=== PATIENT | female | born 1970 | race Caucasian/White ===

== ENCOUNTER 2017-03-28 11:18 | Emergency (ER) | payer MEDICAID | END 2017-03-28 12:09 | disposition home or self-care (01) | LOC: D.ER 11:18 | DX: M77.9 Enthesopathy, unspecified (principal); E11.9 Type 2 diabetes mellitus without complications; I10 Essential (primary) hypertension ==

== ENCOUNTER 2017-08-20 10:02 | Inpatient (IN) | payer MEDICAID ==
[~2017-08-20] VITALS: Ht 160 cm; Wt 67.3 kg
--- NOTE | ~2017-08-20 | OP ---
PATIENT NAME: REHAN ESTRELLA MEDICAL RECORD: [id number] :70 LOCATION:[id number] ADMISSION DATE:08/20/17 SURGEON: SRINI DUNN MD DATE OF OPERATION: 08/23/2017 PREOPERATIVE DIAGNOSES: 1. Acute cholecystitis. 2. Diabetes mellitus. 3. Gastroesophageal reflux disease. POSTOPERATIVE DIAGNOSES: 1. Acute cholecystitis. 2. Diabetes mellitus. 3. Gastroesophageal reflux disease. PROCEDURE: Laparoscopic cholecystectomy. SURGEON: Srini Dunn MD REPORT OF PROCEDURE: The patient's abdomen was prepped and draped in sterile fashion. A cutdown was made on the superior aspect of the umbilicus, 0 Vicryls were placed in the fascia bilaterally and the fascia was incised with a 15-blade. I then bluntly entered the peritoneal cavity and placed a 12-mm Jarrod port. Under direct visualization, a 5-mm trocar was placed in the epigastrium and two more 5-mm trocars were placed in the right subcostal region. The gallbladder was grasped and elevated. There were some acute and chronic changes visible. These chronic inflammatory adhesions were taken down using blunt dissection. The cystic artery and cystic duct were dissected free and these were clipped proximally and distally and ligated in standard fashion. The gallbladder was then peeled off the liver bed using electrocautery. Any bleeding from the liver bed was then treated with electrocautery. We irrigated out the right upper quadrant and assured there was no sign of any bleeding or bile leakage. At this point, the ports and insufflation were then removed and the gallbladder was taken out through the umbilicus. The umbilical fascia was closed with interrupted 0 Vicryls times 3. The wounds were irrigated out with normal saline and infused with 10 mL of 0.25% Marcaine with epinephrine. The skin incisions were all closed with subcutaneous 5-0 Monocryl and dressed appropriately. COMPLICATIONS: None. CONDITION: Stable. ANESTHESIA: General endotracheal and local. BLOOD LOSS: 30 mL. TRANSINT:[id number] Voice Confirmation ID: [id number] DOCUMENT ID: [id number] OPERATIVE REPORT [id number] REHAN ESTRELLA SRINI DUNN MD at 0933 CC: [id number] DICTATION DATE: 08/23/17 1340 DIE STAMPING PRESS OPERATOR: 08/23/17 1431 ADM IN [facility] [address] [id number]
[2017-08-20 10:53] LABS: BASOPHILS 0.2 % (0-2); EOSINOPHILS 0.3 % (0-7); HEMATOCRIT 42.4 % (36.0-48.0); HEMOGLOBIN 14.7 g/dL (12-16); IMMATURE GRANULOCYTES 0.3 % (0-5); MCH 33.6 pg (26.0-34.0); MCHC 34.7 g/dL (31.0-37.0); MCV 96.8 fL (80.0-100.0); MEAN PLATELET VOLUME 9.8 fL (7.4-10.4); MONOCYTES 4.4 % (2-11); NEUTROPHILS 76.8 % (40-80); PLATELET COUNT 266 10x3/uL (130-400); RBC 4.38 10x6/uL (4.00-5.40); RDW 12.1 % (11.5-14.5)
[2017-08-20 11:06] LABS: ALBUMIN 4.1 g/dL (3.4-5.0); ALKALINE PHOSPHATASE 66 U/L (46-116); ALT (SGPT) 87 U/L (10-68); AMYLASE - SERUM 49 U/L (25-115); BILIRUBIN - TOTAL 0.39 mg/dL (0.2-1.3); CALC OSMOLALITY 284 mosm/kg (275-300); CALCIUM 9.3 mg/dL (8.5-10.1); CARBON DIOXIDE 28.3 mmol/L (21.0-32.0); CHLORIDE - SERUM 103 mmol/L (98-107); CREATINE KINASE 64 UL (21-215); CREATININE - SERUM 0.8 mg/dL (0.6-1.3); GLUCOSE 211 mg/dL (74-106); LIPASE 590 U/L (73-393); MAGNESIUM - SERUM 1.9 mg/dL (1.8-2.4); POTASSIUM - SERUM 3.8 mmol/L (3.5-5.1); PROTEIN - SERUM 7.6 g/dL (6.4-8.2); SODIUM 140 mmol/L (136-145); UREA NITROGEN 12 mg/dL (7-18); eGFR NON AFRICAN AMERICAN 81 mL/min (90-120)
[2017-08-20 16:29] LABS: APPEARANCE HAZY (CLEAR); BILIRUBIN NEGATIVE (NEGATIVE); COLOR YELLOW (YELLOW); GLUCOSE 1000 mg/dL (NEGATIVE); KETONE MODERATE mg/dL (NEGATIVE); NITRITE POSITIVE (NEGATIVE); PROTEIN NEGATIVE (NEGATIVE); SPECIFIC GRAVITY 1.015 (1.005-1.020); UROBILINOGEN NORMAL (NORMAL)
[2017-08-20 16:30] LABS: BACTERIA MANY /hpf (NONE SEEN); EPITHELIAL CELLS 0-5 /hpf (0-5); RED CELLS - URINE OCC /hpf (0-5); WHITE CELLS - URINE OCC /hpf (0-5)
[2017-08-20 17:25] VITALS: BP 126/70; BMI 26.2
[2017-08-20 20:00] VITALS: BP 144/73
[2017-08-21] VITALS (7 sets, daily range): BP systolic 104–133; BP diastolic 54–83; Ht 160 cm; Wt 67.3 kg
[2017-08-22 04:00] VITALS: BP 123/79
[2017-08-22] MEDS ORDERED: KLONOPIN1 MG PO (06:27)
[2017-08-22] MEDS ORDERED: EFFEXOR XR150 MG PO (06:28)
[2017-08-22] MEDS ORDERED: MINIPRESS1 MG PO (06:28)
[2017-08-22] MEDS ORDERED: LISINOPRIL2.5 MG PO (06:28)
[2017-08-22] MEDS ORDERED: METFORMIN HCL500 M1 PO (06:29)
[2017-08-22] MEDS ORDERED: BUPROPION HCL100 M1 PO (06:29)
[2017-08-22] MEDS ORDERED: NOVOLOG INJ FLE (06:30)
[2017-08-22] MEDS ORDERED: ESTRACE1 MG PO (06:31)
[2017-08-22] MEDS ORDERED: PROAIR HFA8.5 GM INH (06:32)
[2017-08-22 08:42] VITALS: BP 132/72
[2017-08-22 12:27] VITALS: BP 128/77
[2017-08-22 16:30] VITALS: BP 121/82
[2017-08-22 20:00] VITALS: BP 133/83
[2017-08-23] VITALS: BP 126/65
[2017-08-23 04:00] VITALS: BP 119/81
[2017-08-23 05:59] LABS: BASOPHILS 0.5 % (0-2); EOSINOPHILS 1.7 % (0-7); HEMATOCRIT 35.9 % (36.0-48.0); HEMOGLOBIN 12.2 g/dL (12-16); LYMPHOCYTES 52.6 % (15-50); MCH 33.3 pg (26.0-34.0); MCV 98.1 fL (80.0-100.0); MEAN PLATELET VOLUME 10.2 fL (7.4-10.4); MONOCYTES 5.7 % (2-11); NEUTROPHILS 39.5 % (40-80); PLATELET COUNT 227 10x3/uL (130-400); RBC 3.66 10x6/uL (4.00-5.40); RDW 12.2 % (11.5-14.5)
[2017-08-23 06:18] LABS: CALC OSMOLALITY 278 mosm/kg (275-300); CALCIUM 8.3 mg/dL (8.5-10.1); CARBON DIOXIDE 26.1 mmol/L (21.0-32.0); CHLORIDE - SERUM 104 mmol/L (98-107); CREATININE - SERUM 0.7 mg/dL (0.6-1.3); POTASSIUM - SERUM 3.6 mmol/L (3.5-5.1); SODIUM 140 mmol/L (136-145); UREA NITROGEN 5 mg/dL (7-18); eGFR NON AFRICAN AMERICAN > 90 mL/min (90-120)
[2017-08-23 06:19] LABS: GLUCOSE 157 mg/dL (74-106)
[2017-08-23 08:33] VITALS: BP 121/70
[2017-08-23 11:53] LABS: HCG SERUM NEGATIVE (NEGATIVE)
[2017-08-23 15:18] VITALS: BP 115/86
[2017-08-23 20:00] VITALS: BP 125/73
[2017-08-24 04:00] VITALS: BP 124/86
[2017-08-24 09:29] VITALS: BP 113/81
[2017-08-24] MEDS ORDERED: OXYCODONE HCL5 MG PO (09:31)
[2017-08-24] MEDS ORDERED: PHENERGAN25 M1 PO (09:32)
== END 2017-08-24 10:20 | disposition home or self-care (01) | DRG 419 ==
LOC: D.ER 10:02 → D.MS 14:25
PROVIDERS: Anesthesiology; Emergency Medicine; Surgery
PROC: 0FT44ZZ Resection of Gallbladder, Percutaneous Endoscopic Approach (ICD-10-PCS; principal; 2017-08-23 12:00)
DX: K80.00 Calculus of gallbladder with acute cholecystitis without obstruction (principal); K21.9 Gastro-esophageal reflux disease without esophagitis; J45.909 Unspecified asthma, uncomplicated; E11.9 Type 2 diabetes mellitus without complications; R51 Headache